=== PATIENT | female | born 1985 | race Two or more races ===

== ENCOUNTER 2023-11-08 23:31 | Inpatient (IN) | payer MEDICAID, OTHER ==
[~2023-11-08] VITALS: Ht 165.1 cm; Wt 79.7 kg
[2023-11-09 00:56] LABS: Basophils # (auto) 0.1 10 ^3/uL (0-0.2); Basophils % (auto) 0.7 % (0.0-2.0); Eosinophils # (auto) 0.1 10 ^3/uL (0-0.8); Eosinophils % (auto) 1.6 % (0.0-7.0); Hematocrit 45.1 % (36.0-46.0); Hemoglobin 15.5 g/dL (12.2-16.2); Lymphocytes # (auto) 1.9 10 ^3/uL (0.4-5.4); Lymphocytes % (auto) 22.9 % (10.0-50.0); Mean Corpuscular Hemoglobin 31.3 pg (28.0-32.0); Mean Corpuscular Hgb Conc. 34.4 g/dL (32.0-36.0); Mean Corpuscular Volume 90.9 fL (80.0-100.0); Monocytes # (auto) 0.7 10 ^3/uL (0-1.3); Monocytes % (auto) 8.6 % (0.0-12.0); Neutrophils # (auto) 5.5 10 ^3/uL (1.6-8.6); Neutrophils % (auto) 66.2 % (37.0-80.0); Nucleated Red Blood Cells % 0.1 %; Red Blood Cells 4.96 10^6/uL (4.0-5.20); Red Cell Distribution Width 15.9 % (11.8-14.3); White Blood Cell 8.3 10^3/uL (4.4-10.8)
[2023-11-09 01:07] LABS: Alanine Aminotransferase 26 U/L (7-40); Albumin 3.7 g/dL (3.2-4.8); Alkaline Phosphatase 184 U/L (46-116); Anion Gap 9 (5-15); Aspartate Aminotransferase 32 U/L (13-40); BUN/Creatinine Ratio 8.6 (10.0-20.0); Bilirubin, Total 1.2 mg/dL (0.2-1.0); Blood Urea Nitrogen 10 mg/dL (9-23); Calcium 9.6 mg/dL (8.7-10.4); Carbon Dioxide 30 mmol/L (20-30); Chloride 98 mmol/L (98-107); Glucose 108 mg/dL (74-106); Potassium 2.6 mmol/L (3.5-5.1); Sodium 137 mmol/L (136-145); Total Protein 7.4 g/dL (5.7-8.2)
[2023-11-09 01:10] LABS: INR 1.05 (0.9-1.15); Partial Thromboplastin Time 27.8 SEC (24.5-34.5); Prothrombin Time 11.1 sec (9.3-11.8)
[2023-11-09] MEDS: HYDROcodone-ACET 5/325MG TAB PO ONE (02:35)
[2023-11-09] MEDS: FUROSEMIDE 40 MG/4 ML VIAL IV ONE (02:39)
[2023-11-09] MEDS: PIPERACILLIN-TAZO 4.5GM 100 ML IV ONE (02:43)
[2023-11-09] MEDS: POTASSIUM EFFERVESENT TAB 25 MEQ PO ONE ×2 (02:47→10:50)
[2023-11-09 04:09] LABS: Urine Bacteria FEW /hpf (None Seen); Urine Blood Negative /uL (Negative); Urine Clarity Turbid (Clear); Urine Color Yellow (Yellow); Urine Protein, UAD Negative (Negative); Urine Specific Gravity 1.015 (1.001-1.035); Urine Urobilinogen Normal (Negative); Urine WBC 8 /hpf (0 - 5); Urine pH 6.5 (5.0-9.0)
[2023-11-09 04:20] VITALS: O2SAT 92
[2023-11-09 08:00] VITALS: PULSE 62; RESP 18; O2SAT 98
[2023-11-09] MEDS ORDERED: BUME2TAB5 PO (09:29)
[2023-11-09] MEDS ORDERED: CHOL50007 PO (09:29)
[2023-11-09] MEDS ORDERED: POTA1TAB4 PO (09:29)
[2023-11-09 09:36] LABS: Chloride 100 mmol/L (98-107); Potassium 2.6 mmol/L (3.5-5.1); Sodium 137 mmol/L (136-145)
[2023-11-09 09:37] LABS: Anion Gap 4 (5-15); Carbon Dioxide 33 mmol/L (20-30)
[2023-11-09 09:38] LABS: Calcium 9.3 mg/dL (8.7-10.4)
[2023-11-09 09:42] LABS: Glucose 88 mg/dL (74-106); Triglycerides 87 mg/dL (< 150)
[2023-11-09 09:43] LABS: LDL Cholesterol 88 mg/dL (< 100)
[2023-11-09 09:44] LABS: Cholesterol 139 mg/dL (< 200); HDL Cholesterol 38 mg/dL (40-59)
[2023-11-09] MEDS: BUMETANIDE 2.5mg/10ml (0.25 mg/ml) INJ IV ONE (10:02)
[2023-11-09 10:03] LABS: Blood Urea Nitrogen 11 mg/dL (9-23)
[2023-11-09] MEDS: CHOLECALCIFEROL (VITD3) 1,000UNIT=25mCg TAB PO SCH (10:03)
[2023-11-09] MEDS: BUMETANIDE 1 MG TAB PO SCH (10:03)
[2023-11-09] MEDS: ENOXAPARIN SOD 40 MG/0.4 ML SYRINGE SC SCH (10:03)
[2023-11-09] MEDS ORDERED: POTASSIUM CHL 20MEQ/100ML 100 ML, POTASSIUM CHL 20MEQ/100ML 100 ML IV ONE (10:30)
[2023-11-09] MEDS: POTASSIUM CHL 20MEQ/100ML 100 ML IV SCH (11:49)
[2023-11-09] MEDS: POTASSIUM CHLORIDE 40 MEQ, LIDOCAINE 1% (LOCAL ANESTH.) 4 ML in SODIUM CHL 0.9% 250 ML IV ONE (19:16)
[2023-11-09 20:00] VITALS: PULSE 100; PULSE 68; PULSE 84; PULSE 95; RESP 20
[2023-11-09 21:00] VITALS: BP 117/84; PULSE 85; RESP 24; TEMP 97.8; O2SAT 87
[2023-11-10] VITALS (7 sets, daily range): BP systolic 108–135; BP diastolic 68–92; PULSE 62–96; RESP 12–18; TEMP 97.1–98.6; O2SAT 93–96
[2023-11-10 05:32] LABS: Basophils # (auto) 0.1 10 ^3/uL (0-0.2); Basophils % (auto) 0.9 % (0.0-2.0); Eosinophils # (auto) 0.1 10 ^3/uL (0-0.8); Eosinophils % (auto) 1.3 % (0.0-7.0); Hematocrit 42.5 % (36.0-46.0); Hemoglobin 14.4 g/dL (12.2-16.2); Lymphocytes # (auto) 1.9 10 ^3/uL (0.4-5.4); Lymphocytes % (auto) 31.6 % (10.0-50.0); Mean Corpuscular Hemoglobin 30.5 pg (28.0-32.0); Mean Corpuscular Hgb Conc. 33.9 g/dL (32.0-36.0); Mean Corpuscular Volume 90.2 fL (80.0-100.0); Monocytes # (auto) 0.5 10 ^3/uL (0-1.3); Monocytes % (auto) 9.1 % (0.0-12.0); Neutrophils # (auto) 3.4 10 ^3/uL (1.6-8.6); Neutrophils % (auto) 57.1 % (37.0-80.0); Nucleated Red Blood Cells % 0.1 %; Red Blood Cells 4.71 10^6/uL (4.0-5.20); Red Cell Distribution Width 15.9 % (11.8-14.3)
[2023-11-10 05:51] LABS: Alanine Aminotransferase 22 U/L (7-40); Albumin 3.3 g/dL (3.2-4.8); Alkaline Phosphatase 157 U/L (46-116); Anion Gap 7 (5-15); Aspartate Aminotransferase 28 U/L (13-40); Bilirubin, Total 1.3 mg/dL (0.2-1.0); Blood Urea Nitrogen 10 mg/dL (9-23); Calcium 9.4 mg/dL (8.7-10.4); Carbon Dioxide 30 mmol/L (20-30); Chloride 102 mmol/L (98-107); Glucose 80 mg/dL (74-106); Potassium 3.4 mmol/L (3.5-5.1); Sodium 139 mmol/L (136-145); Total Protein 6.5 g/dL (5.7-8.2)
[2023-11-10] MEDS: cefTRIAXone 1GM/50ML D5W 50 ML IV SCH (10:16)
[2023-11-10] MEDS: POTASSIUM CHL 20 Meq TABLET PO ONE (14:06)
[2023-11-10] MEDS: FUROSEMIDE 40 MG/4 ML VIAL IV ONE (22:34)
[2023-11-10] MEDS: CEFEPIME 2GM/50ML NS 50 ML IV SCH (22:34)
[2023-11-11 05:00] VITALS: BP 92/63; PULSE 80; RESP 17; TEMP 97.5; O2SAT 96
[2023-11-11 09:00] VITALS: BP 112/70; PULSE 75; RESP 18; TEMP 98.1; O2SAT 93
[2023-11-11] MEDS: FUROSEMIDE 40 MG/4 ML VIAL IV SCH ×2 (10:10→21:40)
[2023-11-11 12:51] LABS: Amphetamine Screen, Urine Pos (NEGATIVE); Benzodiazephine Screen, Urine Neg (NEGATIVE)
[2023-11-11 12:52] LABS: Barbiturate Scree,Urine Neg (NEGATIVE); Cannabinoid Screen, Urine Neg (NEGATIVE); Cocaine Screen, Urine Neg (NEGATIVE); Opiate Scree,Urine Neg (NEGATIVE); Phencyclidine Screen, Urine Neg (NEGATIVE)
[2023-11-11 13:00] VITALS: BP 110/71; PULSE 83; RESP 20; TEMP 98.3; O2SAT 98
[2023-11-11 13:50] LABS: Alanine Aminotransferase 23 U/L (7-40); Albumin 3.7 g/dL (3.2-4.8); Alkaline Phosphatase 175 U/L (46-116); Anion Gap 6 (5-15); Aspartate Aminotransferase 31 U/L (13-40); BUN/Creatinine Ratio 9.7 (10.0-20.0); Blood Urea Nitrogen 10 mg/dL (9-23); Carbon Dioxide 30 mmol/L (20-30); Chloride 102 mmol/L (98-107); Glucose 114 mg/dL (74-106); Potassium 3.3 mmol/L (3.5-5.1); Sodium 138 mmol/L (136-145)
[2023-11-11 13:51] LABS: Bilirubin, Total 1.2 mg/dL (0.2-1.0)
[2023-11-11 17:00] VITALS: BP 116/66; PULSE 75; RESP 20; TEMP 97.9; O2SAT 91
[2023-11-11] MEDS: FUROSEMIDE 40 MG/4 ML VIAL IV ONE (17:53)
[2023-11-11] MEDS: metOLazone 5 MG TAB PO ONE (17:54)
[2023-11-11] MEDS: POTASSIUM CHL 20 Meq TABLET PO SCH (21:39)
[2023-11-11 21:40] VITALS: BP 114/73; PULSE 88; RESP 20; TEMP 98.6; O2SAT 92
[2023-11-11] MEDS: MUPIROCIN 2% OINT 15gm or 22gm FOR MRSA NARES EACHNOSTRI SCH (22:00)
[2023-11-12 05:00] VITALS: BP 108/62; PULSE 83; RESP 20; TEMP 97.7; O2SAT 94
[2023-11-12 09:09] VITALS: BP 124/78; PULSE 85; RESP 18; TEMP 97.4; O2SAT 93
[2023-11-12 09:17] LABS: Chloride 99 mmol/L (98-107); Potassium 3.6 mmol/L (3.5-5.1); Sodium 137 mmol/L (136-145)
[2023-11-12 09:18] LABS: Anion Gap 6 (5-15); Calcium 10.2 mg/dL (8.7-10.4); Carbon Dioxide 32 mmol/L (20-30)
[2023-11-12 09:23] LABS: BUN/Creatinine Ratio 8.7 (10.0-20.0); Blood Urea Nitrogen 10 mg/dL (9-23); Glucose 87 mg/dL (74-106)
[2023-11-12] MEDS: metOLazone 5 MG TAB PO SCH (11:18)
[2023-11-12 12:12] VITALS: BP 108/59; PULSE 72; RESP 18; TEMP 97.8; O2SAT 90
[2023-11-12 17:00] VITALS: BP 96/58; PULSE 80; RESP 18; TEMP 97.5; O2SAT 95
[2023-11-12] MEDS: ACETAMINOPHEN 325 MG TAB PO PRN (19:43)
[2023-11-12 21:00] VITALS: BP_SYST 112; BP_SYST 128; BP_DIAS 61; BP_DIAS 69; PULSE 118; PULSE 80; RESP 17; RESP 20; TEMP 97.3; TEMP 98; O2SAT 94; O2SAT 95
[2023-11-13 01:00] VITALS: BP 90/53; PULSE 79; RESP 18; TEMP 98.5; O2SAT 99
[2023-11-13 05:00] VITALS: BP 101/57; PULSE 64; RESP 17; TEMP 98.1; O2SAT 97
[2023-11-13 08:00] VITALS: PULSE 84; RESP 20; O2SAT 90
[2023-11-13 08:57] VITALS: BP 107/70; PULSE 84; RESP 20; TEMP 97.5; O2SAT 90
[2023-11-13 12:27] VITALS: BP 108/59; PULSE 76; RESP 21; TEMP 97.9; O2SAT 98
[2023-11-13 14:13] LABS: Chloride 94 mmol/L (98-107); Potassium 3.2 mmol/L (3.5-5.1); Sodium 134 mmol/L (136-145)
[2023-11-13 14:14] LABS: Anion Gap 11 (5-15); Calcium 10.9 mg/dL (8.7-10.4); Carbon Dioxide 29 mmol/L (20-30)
[2023-11-13 14:19] LABS: BUN/Creatinine Ratio 9.9 (10.0-20.0); Blood Urea Nitrogen 12 mg/dL (9-23); Glucose 110 mg/dL (74-106)
[2023-11-13] MEDS ORDERED: POTASSIUM CHL 20 Meq TABLET PO SCH (14:30)
[2023-11-13] MEDS ORDERED: BUMETANIDE 1 MG TAB PO SCH (18:00)
== END 2023-11-13 16:00 | disposition left against medical advice (07) | DRG 194 ==
LOC: ER 23:31 → OVERFLOW 11-09 09:28 → WEST WING 11-09 16:19
PROVIDERS: ADMIT Internal Medicine; ATTEND Internal Medicine
DX: I50.43 Acute on chronic combined systolic (congestive) and diastolic (congestive) heart failure (principal); I27.20 Pulmonary hypertension, unspecified; E66.01 Morbid (severe) obesity due to excess calories; E87.6 Hypokalemia; N30.00 Acute cystitis without hematuria; Z68.29 Body mass index [BMI] 29.0-29.9, adult; R33.9 Retention of urine, unspecified; I45.10 Unspecified right bundle-branch block; Z53.29 Procedure and treatment not carried out because of patient's decision for other reasons; I08.1 Rheumatic disorders of both mitral and tricuspid valves; E80.6 Other disorders of bilirubin metabolism; E55.9 Vitamin D deficiency, unspecified; F15.10 Other stimulant abuse, uncomplicated
CPT/HCPCS: 36415; 71045; 80048; 80053; 80061; 80307; 81001; 83605; 83735; 83880; 84443; 84702; 85025; 85379; 85610; 85730; 87040; 87081; 93005; 93306; 93970; G0378; J0692; J2001; J2543; J3480